=== PATIENT | male | born 1975 | race African-American/Black ===

== ENCOUNTER 2018-01-13 21:39 | Emergency (ER) | payer SELFPAY ==
[~2018-01-13] VITALS: Ht 177.8 cm; Wt 77.1 kg
[2018-01-13] MEDS ORDERED: NKM (21:46)
[2018-01-13 21:49] VITALS: BP 114/68
[2018-01-13] MEDS ORDERED: IBUPROFEN600 MG ORAL (21:54)
[2018-01-13] MEDS ORDERED: DOXYCYCLINE MO100 MG ORAL (21:54)
--- NOTE | 2018-01-13 21:55 | Emergency Room Report ---
History of Present Illness General Chief Complaint: Upper Extremity Injury Source: Patient Present Illness HPI This a 42-year-old male who is right-hand dominant. He presents with swelling to his right middle finger for the last 2-3 days. No trauma. He is not a nail biter. 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 Pain is 7 out of 10. Worse with palpation. Better with rest. Denies any other complaint. Allergies: Coded Allergies: No Known Allergies (Unverified , 01/13/18) Patient History Past Medical History: see triage record, old chart reviewed Past Surgical History: other Pertinent Family History: none Social History: Denies: smoking Immunizations: other Reviewed Nursing Documentation: PMH: Agreed; PSxH: Agreed Nursing Documentation-PMH Past Medical History: No Stated History Review of Systems Eye: Denies: eye pain, blurred vision ENT: Denies: ear pain, nose congestion, throat swelling Respiratory: Denies: cough, shortness of breath Cardiovascular: Denies: chest pain, palpitations Gastrointestinal: Denies: abdominal pain, diarrhea, nausea, vomiting Musculoskeletal: Reports: joint pain; Denies: back pain Skin: Denies: rash Neurological: Denies: headache, numbness Endocrine: Denies: increased thirst, increased urine Hematologic/Lymphatic: Denies: easy bruising All Other Systems: negative except mentioned in HPI Physical Exam Vital Signs Date Time Temp Pulse Resp B/P (MAP) Pulse Ox O2 Delivery O2 Flow Rate FiO2 01/13/18 21:42 97.5 80 18 114/68 95 Room Air 97.5 vitals normal Sp02 EP Interpretation: reviewed, normal General Appearance: well appearing, no apparent distress, alert Head: normocephalic, atraumatic Eyes: bilateral eye PERRL, bilateral eye EOMI ENT: hearing grossly normal, normal pharynx Neck: full range of motion, supple, no meningismus Respiratory: chest non-tender, lungs clear, normal breath sounds Cardiovascular #1: regular rate, rhythm, no murmur Gastrointestinal: normal bowel sounds, non tender, no mass, no organomegaly, no bruit, non-distended Musculoskeletal: back normal, gait/station normal, normal range of motion, other - right third finger: There is paronychia at the base of the nail Psychiatric: mood/affect normal Skin: warm/dry Procedures Incision and Drainage Incision and Drainage : Consent: Verbal Site: right third finger Blade Size: 11 I & D Procedure: betadine prep Wound Location: upper extremity Patient Tolerated: Well Complications: None Progress Using an 11 blade scalpel, I ran it along the base of the nail. There was moderate amount of pus expressed. Patient tolerated procedure without a problem. Wound was then dressed. Patient has no complaint. Medical Decision Making Diagnostic Impression: Primary Impression: Paronychia of finger of right hand ER Course Patient with a paronychia. No felon. No foreign body. We'll discharge home. Last Vital Signs Date Time Temp Pulse Resp B/P (MAP) Pulse Ox O2 Delivery O2 Flow Rate FiO2 01/13/18 21:49 97.5 80 18 114/68 95 Room Air 97.5 Status: improved Disposition: HOME, SELF-CARE Condition: Stable Scripts Doxycycline Monohydrate* (DOXYCYCLINE MONOHYDRATE*) 100 Mg Capsule 100 MG ORAL Q12H, #14 CAP 0 Refills Prov: CARLOS VERDUZCO M.D. 01/13/18 Ibuprofen* (MOTRIN*) 600 Mg Tablet 600 MG ORAL THREE TIMES A DAY, #30 TAB 0 Refills Prov: CARLOS VERDUZCO M.D. 01/13/18 Additional Instructions: Follow-up with your doctor in 7 days. Keep wound clean. Return of worse. CARLOS VERDUZCO M.D. January 13, 2018 21:55
[2018-01-13] MEDS ORDERED: Norco 5mg/325mg tab ORAL ONE (22:30)
[2018-01-13 22:31] VITALS: BP 114/68
== END 2018-01-13 22:45 | disposition home or self-care (01) ==
LOC: EMR 22:00
DX: L03.011 Cellulitis of right finger (principal)
CPT/HCPCS: 10060; 99284